=== PATIENT | male | born 1995 | race Asian ===

== ENCOUNTER 2023-03-31 11:24 | Inpatient (IN) | payer MEDICAID ==
[~2023-03-31] VITALS: Ht 175.3 cm; Wt 63.7 kg
[2023-03-31 11:46] LABS: BASOPHILS % (AUTO) 0.3 % (0.0-2.0); EOSINOPHILS % (AUTO) 1.5 % (1.0-6.0); HEMATOCRIT 44.2 % (41-53); HEMOGLOBIN 14.6 g/dL (13.5-17.5); LYMPHOCYTES # (AUTO) 2.1 K/uL (1.0-4.8); LYMPHOCYTES % (AUTO) 21.7 % (22.0-44.0); MEAN CORPUSCULAR HEMOGLOBIN 30.9 pg (26.0-34.0); MEAN CORPUSCULAR HGB CONC 33.1 G/dL (31.0-37.0); MEAN CORPUSCULAR VOLUME 93 fL (80-100); MONOCYTES # (AUTO) 0.6 K/uL (0.1-1.0); MONOCYTES % (AUTO) 6.6 % (2.0-9.0); NEUTROPHILS # (AUTO) 6.6 K/uL (1.8-7.7); NEUTROPHILS % (AUTO) 69.9 % (40.0-70.0); PLATELET COUNT (AUTO) 209 K/uL (150-450); RED BLOOD CELL COUNT(AUTO) 4.73 MIL/uL (4.50-5.90); RED CELL DISTRIBUTION WIDTH 13.2 % (11.5-14.5); WHITE BLOOD COUNT (AUTO) 9.5 K/uL (4.5-11.0)
[2023-03-31 11:58] LABS: ALCOHOL, BLOOD (SERUM) < 3 mg/dL (0-10)
[2023-03-31 12:01] LABS: ANION GAP 10 mmol/L (8-16); CALCIUM, TOTAL 8.6 mg/dL (8.8-10.5); CARBON DIOXIDE 28 mmol/L (22-29); CHLORIDE 101 mmol/L (98-107); CREATININE 0.75 mg/dL (0.60-1.30); GLOMERULAR FILTR. RATE CALC > 60 mL/min (>60); GLUCOSE,RANDOM 106 mg/dL (70-110); POTASSIUM 3.6 mmol/L (3.5-5.1); SODIUM SERUM 139 mmol/L (136-145); UREA NITROGEN, BLOOD 11 mg/dL (7-18)
[2023-03-31 12:05] LABS: ALANINE AMINOTRANSFERASE 57 U/L (12-78); ALBUMIN 3.8 g/dL (3.4-5.0); ALKALINE PHOSPHATASE 60 U/L (46-116); ASPARTATE AMINOTRANSFERASE 26 U/L (15-37); BILIRUBIN,TOTAL 0.5 mg/dL (0.1-1.0); TOTAL PROTEIN, SERUM 7.3 g/dL (6.4-8.2)
[2023-03-31] MEDS ORDERED: LORazepam 2 MG TABLET PO PRN (13:00)
[2023-03-31] MEDS ORDERED: HALOPERIDOL 5 MG TABLET PO PRN (13:00)
[2023-03-31 16:15] LABS: COVID AG,FIA SOURCE NASAL SWAB
[2023-03-31 16:33] LABS: SARS-COV2 (COVID) ANTIGEN,FIA Negative (Negative)
[2023-03-31 17:30] VITALS: BP 110/58; PULSE 71; RESP 18; TEMP 97.5
[2023-03-31 17:48] VITALS: BP 110/58; PULSE 71; RESP 18; TEMP 97.5; O2SAT 100
[2023-03-31] MEDS: ZOLPIDEM TARTRATE 10 MG TABLET PO PRN (21:24)
[2023-03-31 22:31] VITALS: BP 94/60; PULSE 60; RESP 18; TEMP 97.8; O2SAT 100
[2023-04-01 12:08] VITALS: BP 102/62; PULSE 89; RESP 18; TEMP 97.8; O2SAT 96
[2023-04-01] MEDS ORDERED: ACETAMINOPHEN 325 MG TABLET PO PRN (20:30)
[2023-04-01] MEDS ORDERED: OMEPRAZOLE 20 MG CAPSULE PO PRN (20:30)
[2023-04-01] MEDS ORDERED: MAG HYDROX/AL HYDROX/SIMETH ES 30 ML SUSPENSION UDCUP PO PRN (20:30)
[2023-04-01] MEDS ORDERED: IBUPROFEN 600 MG TABLET PO PRN (20:30)
[2023-04-01] MEDS ORDERED: BENZOCAINE/MENTHOL LOZENGE PO PRN (20:30)
[2023-04-01] MEDS ORDERED: MAGNESIUM HYDROXIDE SUSPENSION 30 ML UDCUP PO PRN (20:30)
[2023-04-01] MEDS ORDERED: ONDANSETRON HCL 4 MG TABLET PO PRN (20:30)
[2023-04-01] MEDS ORDERED: LOPERAMIDE HCL 2 MG CAPSULE PO PRN (20:30)
[2023-04-01] MEDS ORDERED: BACITRACIN 28 GM OINTMENT TP PRN (20:30)
[2023-04-01] MEDS ORDERED: DOCUSATE SODIUM 100 MG CAPSULE PO PRN (20:30)
[2023-04-01] MEDS ORDERED: ALBUTEROL SULFATE HFA 90 MCG/PUFF 8 GM INHALER IH PRN (20:30)
[2023-04-01] MEDS ORDERED: PETROLATUM,WHITE 28 GM JELLY TP PRN (20:30)
[2023-04-01] MEDS ORDERED: CloNIDine HCL 0.1 MG TABLET PO PRN (20:30)
[2023-04-01] MEDS: ZOLPIDEM TARTRATE 10 MG TABLET PO PRN (21:08)
[2023-04-01 21:28] VITALS: BP 100/60; PULSE 60; RESP 16; TEMP 98.9; O2SAT 96
[2023-04-02 09:03] VITALS: BP 112/64; PULSE 69; RESP 18; TEMP 98.1; O2SAT 99
[2023-04-02 20:33] VITALS: BP 123/70; PULSE 18; RESP 18; TEMP 97.8; O2SAT 100
[2023-04-03 11:45] VITALS: BP 103/57; PULSE 16; RESP 16; TEMP 98.5; O2SAT 98
[2023-04-03] MEDS: RisperiDONE 1 MG TABLET PO SCH (16:37)
[2023-04-03] MEDS: ZOLPIDEM TARTRATE 10 MG TABLET PO PRN (21:29)
[2023-04-04 08:00] VITALS: BP 95/61; PULSE 64; RESP 18; TEMP 98.1; O2SAT 99
[2023-04-04] MEDS: RisperiDONE 1 MG TABLET PO SCH ×2 (09:21→17:26)
[2023-04-04 20:01] VITALS: BP 105/78; PULSE 72; RESP 18; TEMP 97.8; O2SAT 97
[2023-04-05 09:33] VITALS: BP 100/60; PULSE 69; RESP 19; TEMP 98; O2SAT 98
[2023-04-05] MEDS: RisperiDONE 1 MG TABLET PO SCH ×2 (09:39→16:54)
[2023-04-05 21:30] VITALS: BP 112/89; PULSE 84; RESP 18; TEMP 98.7; O2SAT 97
[2023-04-06] MEDS: RisperiDONE 1 MG TABLET PO SCH ×2 (08:36→16:53)
[2023-04-06 09:47] VITALS: BP 113/64; PULSE 70; RESP 20; TEMP 97.2; O2SAT 100
[2023-04-06] MEDS ORDERED: RISP1TAB98 PO (15:13)
== END 2023-04-06 17:15 | disposition home or self-care (01) | DRG 750 ==
LOC: EMS 11:30 → 3EI 15:42
PROVIDERS: ADMIT Psychiatry & Neurology Psychiatry; ATTEND Psychiatry & Neurology Psychiatry
DX: F25.9 Schizoaffective disorder, unspecified (principal); R45.851 Suicidal ideations; F12.10 Cannabis abuse, uncomplicated; G47.00 Insomnia, unspecified; F41.9 Anxiety disorder, unspecified; Z20.822 Contact with and (suspected) exposure to COVID-19; F10.90 Alcohol use, unspecified, uncomplicated; Y90.9 Presence of alcohol in blood, level not specified; K59.00 Constipation, unspecified; Z72.0 Tobacco use; Z71.6 Tobacco abuse counseling
CPT/HCPCS: 80053; 85025; 99285; G0480

== ENCOUNTER 2023-04-11 08:25 | Inpatient (IN) | payer MEDICAID ==
[~2023-04-11] VITALS: Ht 172.7 cm; Wt 64.6 kg
[~2023-04-11 08:25] MED LIST: RISP1TAB98 PO
[2023-04-11 09:05] LABS: BASOPHILS % (AUTO) 0.3 % (0.0-2.0); EOSINOPHILS % (AUTO) 2.7 % (1.0-6.0); HEMATOCRIT 43.7 % (41-53); HEMOGLOBIN 14.6 g/dL (13.5-17.5); LYMPHOCYTES # (AUTO) 2.3 K/uL (1.0-4.8); LYMPHOCYTES % (AUTO) 26.3 % (22.0-44.0); MEAN CORPUSCULAR HEMOGLOBIN 30.9 pg (26.0-34.0); MEAN CORPUSCULAR HGB CONC 33.4 G/dL (31.0-37.0); MEAN CORPUSCULAR VOLUME 93 fL (80-100); MONOCYTES # (AUTO) 0.7 K/uL (0.1-1.0); MONOCYTES % (AUTO) 8.4 % (2.0-9.0); NEUTROPHILS # (AUTO) 5.5 K/uL (1.8-7.7); NEUTROPHILS % (AUTO) 62.3 % (40.0-70.0); PLATELET COUNT (AUTO) 229 K/uL (150-450); RED BLOOD CELL COUNT(AUTO) 4.72 MIL/uL (4.50-5.90); WHITE BLOOD COUNT (AUTO) 8.8 K/uL (4.5-11.0)
[2023-04-11 09:12] LABS: ANION GAP 11 mmol/L (8-16); CALCIUM, TOTAL 8.7 mg/dL (8.8-10.5); CARBON DIOXIDE 28 mmol/L (22-29); CHLORIDE 102 mmol/L (98-107); CREATININE 0.68 mg/dL (0.60-1.30); GLOMERULAR FILTR. RATE CALC > 60 mL/min (>60); GLUCOSE,RANDOM 92 mg/dL (70-110); POTASSIUM 3.6 mmol/L (3.5-5.1); SODIUM SERUM 141 mmol/L (136-145); UREA NITROGEN, BLOOD 8 mg/dL (7-18)
[2023-04-11 09:18] LABS: ALANINE AMINOTRANSFERASE 14 U/L (12-78); ALBUMIN 4.1 g/dL (3.4-5.0); ALKALINE PHOSPHATASE 65 U/L (46-116); ASPARTATE AMINOTRANSFERASE 17 U/L (15-37); BILIRUBIN,TOTAL 0.2 mg/dL (0.1-1.0); TOTAL PROTEIN, SERUM 7.6 g/dL (6.4-8.2)
[2023-04-11 09:19] LABS: ALCOHOL, BLOOD (SERUM) < 3 mg/dL (0-10)
[2023-04-11 09:50] LABS: COVID AG,FIA SOURCE NASAL SWAB
[2023-04-11 10:32] LABS: SARS-COV2 (COVID) ANTIGEN,FIA Negative (Negative)
[2023-04-11] MEDS ORDERED: HALOPERIDOL 5 MG TABLET PO PRN (11:45)
[2023-04-11] MEDS ORDERED: LORazepam 2 MG TABLET PO PRN (11:45)
[2023-04-11 13:25] LABS: APPEARANCE,URINE CLEAR (CLEAR); BILIRUBIN,URINE NEGATIVE (NEGATIVE); COLOR,URINE COLORLESS (YELLOW); GLUCOSE, URINE (UA) NEGATIVE (NEGATIVE); KETONES,URINE NEGATIVE (NEGATIVE); LEUKOCYTE ESTERASE ,URINE NEGATIVE (NEGATIVE); NITRATE,URINE NEGATIVE (NEGATIVE); OCCULT BLOOD,URINE NEGATIVE (NEGATIVE); PROTEIN,URINE NEGATIVE (NEGATIVE); SPECIFIC GRAVITIY, URINE 1.007 (1.003-1.030); UROBILINOGEN,URINE <=1.0 mg/dL (<=1.0)
[2023-04-11 22:55] VITALS: BP 109/64; PULSE 65; RESP 19; TEMP 97.8; O2SAT 98
[2023-04-11 23:14] VITALS: BP 109/64; PULSE 65; RESP 19; TEMP 97.8
[2023-04-11 23:21] VITALS: BP 109/64; PULSE 65; RESP 19; TEMP 97.8
[2023-04-12] MEDS ORDERED: BACITRACIN 28 GM OINTMENT TP PRN (07:30)
[2023-04-12] MEDS ORDERED: BENZOCAINE/MENTHOL LOZENGE PO PRN (07:30)
[2023-04-12] MEDS ORDERED: ONDANSETRON HCL 4 MG TABLET PO PRN (07:30)
[2023-04-12] MEDS ORDERED: DOCUSATE SODIUM 100 MG CAPSULE PO PRN (07:30)
[2023-04-12] MEDS ORDERED: ALBUTEROL SULFATE HFA 90 MCG/PUFF 8 GM INHALER IH PRN (07:30)
[2023-04-12] MEDS ORDERED: MAGNESIUM HYDROXIDE SUSPENSION 30 ML UDCUP PO PRN (07:30)
[2023-04-12] MEDS ORDERED: ACETAMINOPHEN 325 MG TABLET PO PRN (07:30)
[2023-04-12] MEDS ORDERED: IBUPROFEN 600 MG TABLET PO PRN (07:30)
[2023-04-12] MEDS ORDERED: PETROLATUM,WHITE 28 GM JELLY TP PRN (07:30)
[2023-04-12] MEDS ORDERED: LOPERAMIDE HCL 2 MG CAPSULE PO PRN (07:30)
[2023-04-12] MEDS ORDERED: OMEPRAZOLE 20 MG CAPSULE PO PRN (07:30)
[2023-04-12] MEDS ORDERED: MAG HYDROX/AL HYDROX/SIMETH ES 30 ML SUSPENSION UDCUP PO PRN (07:30)
[2023-04-12] MEDS ORDERED: CloNIDine HCL 0.1 MG TABLET PO PRN (07:30)
[2023-04-12 10:04] VITALS: BP 112/65; PULSE 65; RESP 18; TEMP 97.8
[2023-04-12 13:43] LABS: ALCOHOL, URINE DRUG SCREEN NEGATIVE (NEGATIVE); AMPHET/METH SCREEN,URINE NEGATIVE (NEGATIVE); BARBITURATE SCREEN, URINE NEGATIVE (NEGATIVE); BENZODIAZEPINES SCREEN,URINE NEGATIVE (NEGATIVE); CANNABINOID SCREEN,URINE NEGATIVE (NEGATIVE); COCAINE SCREEN,URINE NEGATIVE (NEGATIVE); METHADONE SCREEN, URINE NEGATIVE (NEGATIVE); OPIATE SCREEN,URINE NEGATIVE (NEGATIVE); PHENCYCLIDINE SCREEN,URINE NEGATIVE (NEGATIVE)
[2023-04-12] MEDS: RisperiDONE 1 MG TABLET PO SCH (17:39)
[2023-04-12] MEDS: DIVALPROEX SODIUM 500 MG DR TABLET PO SCH (17:39)
[2023-04-12] MEDS: LITHIUM CARBONATE 300 MG CAPSULE PO SCH (17:39)
[2023-04-12 20:44] VITALS: BP 113/62; PULSE 68; RESP 18; TEMP 97.8
[2023-04-13] MEDS: LITHIUM CARBONATE 300 MG CAPSULE PO SCH ×2 (10:02→16:17)
[2023-04-13] MEDS: RisperiDONE 1 MG TABLET PO SCH (10:02)
[2023-04-13] MEDS: DIVALPROEX SODIUM 500 MG DR TABLET PO SCH ×2 (10:02→16:17)
[2023-04-13 10:18] VITALS: BP 124/68; PULSE 76; RESP 18; TEMP 97.7
[2023-04-13] MEDS: RisperiDONE 3 MG TABLET PO SCH (16:17)
[2023-04-13 20:51] VITALS: BP 99/71; PULSE 67; RESP 18; TEMP 97.9
[2023-04-14] MEDS: DIVALPROEX SODIUM 500 MG DR TABLET PO SCH ×3 (08:16→17:00)
[2023-04-14] MEDS: LITHIUM CARBONATE 300 MG CAPSULE PO SCH ×3 (08:16→17:00)
[2023-04-14] MEDS: RisperiDONE 3 MG TABLET PO SCH ×3 (08:16→17:00)
[2023-04-14 11:39] VITALS: BP 110/65; PULSE 89; RESP 17; TEMP 97.2
[2023-04-14 21:14] VITALS: BP 130/67; PULSE 72; RESP 18; TEMP 97.4
[2023-04-15 08:01] VITALS: BP 96/71; PULSE 88; RESP 18; TEMP 98.1
[2023-04-15] MEDS: RisperiDONE 3 MG TABLET PO SCH ×2 (09:00→17:14)
[2023-04-15] MEDS: LITHIUM CARBONATE 300 MG CAPSULE PO SCH ×2 (09:00→17:14)
[2023-04-15] MEDS: DIVALPROEX SODIUM 500 MG DR TABLET PO SCH ×2 (09:00→17:14)
[2023-04-15 20:14] VITALS: BP 101/75; PULSE 85; RESP 18; TEMP 98.4
[2023-04-15] MEDS: ZOLPIDEM TARTRATE 10 MG TABLET PO PRN (21:31)
[2023-04-16] MEDS: RisperiDONE 3 MG TABLET PO SCH ×2 (09:00→18:17)
[2023-04-16] MEDS: LITHIUM CARBONATE 300 MG CAPSULE PO SCH ×2 (09:00→18:17)
[2023-04-16] MEDS: DIVALPROEX SODIUM 500 MG DR TABLET PO SCH ×2 (09:00→18:17)
[2023-04-16 09:34] LABS: VALPROIC ACID 34 mcg/mL (50-100)
[2023-04-16 09:45] VITALS: BP 100/68; PULSE 80; RESP 18; TEMP 98.7
[2023-04-16 09:56] LABS: LITHIUM < 0.20 mmol/L (0.60-1.20)
[2023-04-16 21:52] VITALS: BP 91/54; PULSE 82; RESP 18; TEMP 99.1
[2023-04-17 09:00] VITALS: BP 118/83; PULSE 81; RESP 18; TEMP 97.5
[2023-04-17] MEDS: RisperiDONE 3 MG TABLET PO SCH ×2 (09:13→17:00)
[2023-04-17] MEDS: DIVALPROEX SODIUM 500 MG DR TABLET PO SCH ×2 (09:13→17:00)
[2023-04-17] MEDS: LITHIUM CARBONATE 300 MG CAPSULE PO SCH ×2 (09:13→17:00)
[2023-04-17] MEDS: ZOLPIDEM TARTRATE 10 MG TABLET PO PRN (21:39)
[2023-04-17 22:25] VITALS: BP 90/60; PULSE 61; RESP 18; TEMP 97.8
[2023-04-18] MEDS: DIVALPROEX SODIUM 500 MG DR TABLET PO SCH ×2 (09:31→16:12)
[2023-04-18] MEDS: LITHIUM CARBONATE 300 MG CAPSULE PO SCH ×2 (09:31→16:12)
[2023-04-18] MEDS: RisperiDONE 3 MG TABLET PO SCH ×2 (09:31→16:12)
[2023-04-18 09:47] VITALS: BP 96/68; PULSE 82; RESP 18; TEMP 97.6
[2023-04-18 21:24] VITALS: BP 92/60; PULSE 60; RESP 18; TEMP 97.7
[2023-04-19] MEDS: ZOLPIDEM TARTRATE 10 MG TABLET PO PRN (02:35)
[2023-04-19 08:00] VITALS: BP 96/61; PULSE 85; RESP 17; TEMP 97.9
[2023-04-19] MEDS: LITHIUM CARBONATE 300 MG CAPSULE PO SCH ×2 (09:19→18:24)
[2023-04-19] MEDS: DIVALPROEX SODIUM 500 MG DR TABLET PO SCH ×2 (09:20→18:24)
[2023-04-19] MEDS: RisperiDONE 3 MG TABLET PO SCH ×2 (09:20→18:24)
[2023-04-19 21:19] VITALS: BP 94/60; PULSE 64; RESP 17; TEMP 97
[2023-04-20] MEDS: RisperiDONE 3 MG TABLET PO SCH ×2 (08:08→16:39)
[2023-04-20] MEDS: DIVALPROEX SODIUM 500 MG DR TABLET PO SCH ×2 (08:08→16:39)
[2023-04-20] MEDS: LITHIUM CARBONATE 300 MG CAPSULE PO SCH ×2 (08:08→16:39)
[2023-04-20 08:40] VITALS: BP 104/63; PULSE 76; RESP 18; TEMP 97.7
[2023-04-20 21:19] VITALS: BP 98/62; PULSE 86; RESP 18; TEMP 97.8
[2023-04-20] MEDS: ZOLPIDEM TARTRATE 10 MG TABLET PO PRN (21:46)
[2023-04-21] MEDS: RisperiDONE 3 MG TABLET PO SCH ×3 (08:43→16:14)
[2023-04-21] MEDS: DIVALPROEX SODIUM 500 MG DR TABLET PO SCH ×3 (08:43→16:14)
[2023-04-21] MEDS: LITHIUM CARBONATE 300 MG CAPSULE PO SCH ×2 (08:43→16:14)
[2023-04-21 09:58] VITALS: BP 97/67; PULSE 70; RESP 17
[2023-04-21] MEDS ORDERED: DIVA-112 PO (21:01)
[2023-04-21] MEDS ORDERED: RISP3TAB63 PO (21:01)
[2023-04-21] MEDS ORDERED: LITH300C3 PO (21:01)
[2023-04-21] MEDS: ZOLPIDEM TARTRATE 10 MG TABLET PO PRN (21:36)
[2023-04-21 21:53] VITALS: BP 113/65; PULSE 90; RESP 18; TEMP 95
[2023-04-22] MEDS: DIVALPROEX SODIUM 500 MG DR TABLET PO SCH (08:47)
[2023-04-22] MEDS: LITHIUM CARBONATE 300 MG CAPSULE PO SCH (08:47)
[2023-04-22] MEDS: RisperiDONE 3 MG TABLET PO SCH (08:47)
[2023-04-22 09:10] VITALS: BP 103/68; PULSE 62; RESP 19; TEMP 97.8
== END 2023-04-22 10:25 | disposition home or self-care (01) | DRG 750 ==
LOC: EMS 08:25 → 3EI 17:30
PROVIDERS: ADMIT Psychiatry & Neurology Psychiatry; ATTEND Psychiatry & Neurology Psychiatry
DX: F25.9 Schizoaffective disorder, unspecified (principal); R45.851 Suicidal ideations; F41.9 Anxiety disorder, unspecified; G47.00 Insomnia, unspecified; K59.00 Constipation, unspecified; F10.90 Alcohol use, unspecified, uncomplicated; F17.210 Nicotine dependence, cigarettes, uncomplicated; Z20.822 Contact with and (suspected) exposure to COVID-19
CPT/HCPCS: 80053; 80164; 80178; 80307; 81003; 85025; 99285; G0480

== ENCOUNTER 2023-05-19 08:34 | Inpatient (IN) | payer MEDICAID ==
[~2023-05-19] VITALS: Ht 175.3 cm; Wt 68.7 kg
[~2023-05-19 08:34] MED LIST changes: +DIVA-112 PO; +LITH300C3 PO; -RISP1TAB98 PO; +RISP3TAB63 PO
[2023-05-19] MEDS ORDERED: HALOPERIDOL 5 MG TABLET PO ONE (09:45)
[2023-05-19 09:57] LABS: BASOPHILS % (AUTO) 0.2 % (0.0-2.0); EOSINOPHILS % (AUTO) 2.1 % (1.0-6.0); HEMATOCRIT 45.1 % (41-53); HEMOGLOBIN 15.3 g/dL (13.5-17.5); LYMPHOCYTES % (AUTO) 24.7 % (22.0-44.0); MEAN CORPUSCULAR HEMOGLOBIN 31.5 pg (26.0-34.0); MEAN CORPUSCULAR VOLUME 93 fL (80-100); MONOCYTES # (AUTO) 0.6 K/uL (0.1-1.0); NEUTROPHILS # (AUTO) 5.2 K/uL (1.8-7.7); PLATELET COUNT (AUTO) 223 K/uL (150-450); RED BLOOD CELL COUNT(AUTO) 4.87 MIL/uL (4.50-5.90)
[2023-05-19 10:04] LABS: ANION GAP 8 mmol/L (8-16); CALCIUM, TOTAL 9.6 mg/dL (8.8-10.5); CARBON DIOXIDE 28 mmol/L (22-29); CHLORIDE 100 mmol/L (98-107); CREATININE 0.77 mg/dL (0.60-1.30); GLOMERULAR FILTR. RATE CALC > 60 mL/min (>60); GLUCOSE,RANDOM 99 mg/dL (70-110); POTASSIUM 3.9 mmol/L (3.5-5.1); SODIUM SERUM 136 mmol/L (136-145); UREA NITROGEN, BLOOD 10 mg/dL (7-18)
[2023-05-19 10:08] LABS: COVID AG,FIA SOURCE NASAL SWAB
[2023-05-19 10:10] LABS: ALANINE AMINOTRANSFERASE 56 U/L (12-78); ALBUMIN 4.4 g/dL (3.4-5.0); ALKALINE PHOSPHATASE 69 U/L (46-116); ASPARTATE AMINOTRANSFERASE 29 U/L (15-37); BILIRUBIN,TOTAL 0.3 mg/dL (0.1-1.0); TOTAL PROTEIN, SERUM 8.4 g/dL (6.4-8.2)
[2023-05-19 10:11] LABS: ALCOHOL, URINE DRUG SCREEN NEGATIVE (NEGATIVE); AMPHET/METH SCREEN,URINE NEGATIVE (NEGATIVE); BARBITURATE SCREEN, URINE NEGATIVE (NEGATIVE); BENZODIAZEPINES SCREEN,URINE NEGATIVE (NEGATIVE); CANNABINOID SCREEN,URINE NEGATIVE (NEGATIVE); COCAINE SCREEN,URINE NEGATIVE (NEGATIVE); METHADONE SCREEN, URINE NEGATIVE (NEGATIVE); OPIATE SCREEN,URINE NEGATIVE (NEGATIVE); PHENCYCLIDINE SCREEN,URINE NEGATIVE (NEGATIVE)
[2023-05-19 10:26] LABS: ALCOHOL, BLOOD (SERUM) < 3 mg/dL (0-10); LITHIUM < 0.20 mmol/L (0.60-1.20)
[2023-05-19 10:27] LABS: VALPROIC ACID < 3 mcg/mL (50-100)
[2023-05-19 10:32] LABS: SARS-COV2 (COVID) ANTIGEN,FIA Negative (Negative)
[2023-05-19 16:28] LABS: APPEARANCE,URINE CLEAR (CLEAR); BILIRUBIN,URINE NEGATIVE (NEGATIVE); COLOR,URINE LIGHT YELLOW (YELLOW); GLUCOSE, URINE (UA) NEGATIVE (NEGATIVE); KETONES,URINE NEGATIVE (NEGATIVE); LEUKOCYTE ESTERASE ,URINE NEGATIVE (NEGATIVE); NITRATE,URINE NEGATIVE (NEGATIVE); OCCULT BLOOD,URINE NEGATIVE (NEGATIVE); PH,URINE 6.5 (5.0-8.0); PROTEIN,URINE NEGATIVE (NEGATIVE); SPECIFIC GRAVITIY, URINE 1.018 (1.003-1.030); UROBILINOGEN,URINE <=1.0 mg/dL (<=1.0)
[2023-05-19] MEDS: ZOLPIDEM TARTRATE 10 MG TABLET PO PRN (20:44)
[2023-05-19] MEDS ORDERED: INFLUENZA VIRUS VACCINE QVS 2023-24 (6MO+)/PF 60 MCG/0.5 ML SYRINGE IM. ONE (22:00)
[2023-05-19 22:10] VITALS: BP 98/71; PULSE 65; RESP 18; TEMP 97.6
[2023-05-20] MEDS ORDERED: IBUPROFEN 600 MG TABLET PO PRN (07:30)
[2023-05-20] MEDS ORDERED: ACETAMINOPHEN 325 MG TABLET PO PRN (07:30)
[2023-05-20] MEDS ORDERED: CloNIDine HCL 0.1 MG TABLET PO PRN (07:30)
[2023-05-20] MEDS ORDERED: DOCUSATE SODIUM 100 MG CAPSULE PO PRN (07:30)
[2023-05-20] MEDS ORDERED: LOPERAMIDE HCL 2 MG CAPSULE PO PRN (07:30)
[2023-05-20] MEDS ORDERED: MAGNESIUM HYDROXIDE SUSPENSION 30 ML UDCUP PO PRN (07:30)
[2023-05-20] MEDS ORDERED: BENZOCAINE/MENTHOL LOZENGE PO PRN (07:30)
[2023-05-20] MEDS ORDERED: OMEPRAZOLE 20 MG CAPSULE PO PRN (07:30)
[2023-05-20] MEDS ORDERED: ONDANSETRON HCL 4 MG TABLET PO PRN (07:30)
[2023-05-20] MEDS ORDERED: ALBUTEROL SULFATE HFA 90 MCG/PUFF 8 GM INHALER IH PRN (07:30)
[2023-05-20] MEDS ORDERED: BACITRACIN 28 GM OINTMENT TP PRN (07:30)
[2023-05-20] MEDS ORDERED: PETROLATUM,WHITE 28 GM JELLY TP PRN (07:30)
[2023-05-20] MEDS ORDERED: MAG HYDROX/ALUMINUM HYD/SIMETH ES 30 ML SUSPENSION UDCUP PO PRN (07:30)
[2023-05-20 10:27] VITALS: BP 102/68; PULSE 86; RESP 16; TEMP 98.3; O2SAT 99
[2023-05-20 16:20] VITALS: BP 128/89; PULSE 70; RESP 19; TEMP 98.1
[2023-05-20 20:35] VITALS: BP 128/89; PULSE 70; RESP 19; TEMP 98.1; O2SAT 98
[2023-05-21 08:32] VITALS: BP 112/62; PULSE 67; RESP 17; TEMP 97.6; O2SAT 98
[2023-05-21] MEDS: HALOPERIDOL 5 MG TABLET PO PRN (18:43)
[2023-05-21] MEDS: OLANZapine 5 MG RAPDIS TABLET PO SCH (20:44)
[2023-05-21 22:27] VITALS: BP 101/60; PULSE 73; RESP 17; TEMP 97.4; O2SAT 97
[2023-05-22 08:47] VITALS: BP 118/67; PULSE 64; RESP 18; TEMP 97.6; O2SAT 100
[2023-05-22 20:40] VITALS: BP 103/64; PULSE 60; RESP 18; TEMP 97.7; O2SAT 98
[2023-05-22] MEDS: OLANZapine 5 MG RAPDIS TABLET PO SCH (20:46)
[2023-05-23 08:30] VITALS: BP 118/61; PULSE 60; RESP 18; TEMP 97.6; O2SAT 98
[2023-05-23] MEDS: OLANZapine 5 MG RAPDIS TABLET PO SCH (20:42)
[2023-05-23 22:25] VITALS: BP 107/69; PULSE 71; RESP 18; TEMP 97.8; O2SAT 98
[2023-05-24 10:00] VITALS: BP 103/65; PULSE 85; RESP 16; TEMP 97.9; O2SAT 99
[2023-05-24 20:35] VITALS: BP 111/72; PULSE 67; RESP 18; TEMP 97.8; O2SAT 97
[2023-05-24] MEDS: OLANZapine 5 MG RAPDIS TABLET PO SCH (21:37)
[2023-05-25 08:29] VITALS: BP 101/60; PULSE 64; RESP 18; TEMP 97.6; O2SAT 98
[2023-05-25] MEDS: OLANZapine 5 MG RAPDIS TABLET PO SCH (20:51)
[2023-05-25 22:49] VITALS: BP 95/66; PULSE 60; RESP 18; TEMP 98.6; O2SAT 98
[2023-05-26 09:00] VITALS: BP 102/57; PULSE 63; RESP 17; TEMP 98.8; O2SAT 98
[2023-05-26] MEDS: OLANZapine 5 MG RAPDIS TABLET PO SCH (20:26)
[2023-05-26 21:32] VITALS: BP 101/78; PULSE 65; RESP 18; TEMP 98.1; O2SAT 98
[2023-05-27 08:49] VITALS: BP 104/68; PULSE 63; RESP 17; TEMP 97.6; O2SAT 96
[2023-05-27 18:44] VITALS: RESP 18; O2SAT 96
[2023-05-27 19:44] VITALS: RESP 17; O2SAT 96
[2023-05-27] MEDS: OLANZapine 5 MG RAPDIS TABLET PO SCH (21:03)
[2023-05-27 21:08] VITALS: BP 104/54; PULSE 74; RESP 18; TEMP 97.9; O2SAT 98
[2023-05-28 01:10] VITALS: BP 123/67; PULSE 62; RESP 17; TEMP 98.1; O2SAT 98
[2023-05-28] MEDS: ZOLPIDEM TARTRATE 10 MG TABLET PO PRN ×2 (01:20→21:42)
[2023-05-28 08:45] VITALS: BP 108/63; PULSE 60; RESP 18; TEMP 97.7; O2SAT 97
[2023-05-28 21:02] VITALS: BP 117/75; PULSE 67; RESP 18; TEMP 98.1; O2SAT 98
[2023-05-28] MEDS: OLANZapine 5 MG RAPDIS TABLET PO SCH (21:41)
[2023-05-28] MEDS: HALOPERIDOL 5 MG TABLET PO PRN (21:42)
[2023-05-28] MEDS: LORazepam 2 MG TABLET PO PRN (21:42)
[2023-05-29 08:37] VITALS: BP 106/71; PULSE 70; RESP 18; TEMP 97.6; O2SAT 97
[2023-05-29] MEDS: OLANZapine 5 MG RAPDIS TABLET PO SCH (20:51)
[2023-05-29 20:52] VITALS: BP 100/60; PULSE 78; RESP 17; TEMP 98; O2SAT 97
[2023-05-30 08:28] VITALS: BP 100/67; PULSE 73; RESP 17; TEMP 98; O2SAT 99
[2023-05-30 20:50] VITALS: BP 100/60; PULSE 68; RESP 18; TEMP 98; O2SAT 98
[2023-05-30] MEDS: OLANZapine 5 MG RAPDIS TABLET PO SCH (21:31)
[2023-05-30] MEDS: ZOLPIDEM TARTRATE 10 MG TABLET PO PRN (21:31)
[2023-05-30] MEDS: LORazepam 2 MG TABLET PO PRN (21:32)
[2023-05-31 08:57] VITALS: BP 105/61; PULSE 71; RESP 17; TEMP 98.4
[2023-05-31 20:27] VITALS: BP 104/73; PULSE 73; RESP 18; TEMP 97.6; O2SAT 98
[2023-05-31] MEDS: OLANZapine 5 MG RAPDIS TABLET PO SCH (20:45)
[2023-06-01 08:49] VITALS: BP 104/58; PULSE 88; RESP 18; TEMP 98; O2SAT 99
[2023-06-01 20:18] VITALS: BP 127/75; PULSE 103; RESP 18; TEMP 98.5; O2SAT 98
[2023-06-01] MEDS: OLANZapine 5 MG RAPDIS TABLET PO SCH (20:24)
[2023-06-02 08:52] VITALS: BP 108/61; PULSE 82; RESP 19; TEMP 97.7; O2SAT 98
== END 2023-06-02 14:40 | disposition home or self-care (01) | DRG 750 ==
LOC: EMS 08:34 → B2S 17:00 → UNDOADMIN 19:48
PROVIDERS: ADMIT Psychiatry & Neurology Psychiatry; ATTEND Psychiatry & Neurology Psychiatry
DX: F25.9 Schizoaffective disorder, unspecified (principal); R45.851 Suicidal ideations; F10.90 Alcohol use, unspecified, uncomplicated; F41.9 Anxiety disorder, unspecified; Z20.822 Contact with and (suspected) exposure to COVID-19; Z59.00 Homelessness unspecified; G47.00 Insomnia, unspecified; K59.00 Constipation, unspecified; F17.200 Nicotine dependence, unspecified, uncomplicated; Z91.199 Patient's noncompliance with other medical treatment and regimen due to unspecified reason
CPT/HCPCS: 80053; 80164; 80178; 80307; 81003; 85025; G0480

== ENCOUNTER 2024-04-19 08:16 | Inpatient (IN) | payer MEDICAID ==
[~2024-04-19] VITALS: Ht 175.3 cm; Wt 66.7 kg
[2024-04-19 08:15] VITALS: BP 112/74; PULSE 62; RESP 18; TEMP 96.8; O2SAT 100
[2024-04-19] MEDS ORDERED: LORazepam 2 MG TABLET PO PRN (10:00)
[2024-04-19] MEDS ORDERED: ZOLPIDEM TARTRATE 10 MG TABLET PO PRN (10:00)
[2024-04-19] MEDS ORDERED: HALOPERIDOL 5 MG TABLET PO PRN (10:00)
[2024-04-19] MEDS ORDERED: PETROLATUM,WHITE 28 GM JELLY TP PRN (10:30)
[2024-04-19] MEDS ORDERED: LOPERAMIDE HCL 2 MG CAPSULE PO PRN (10:30)
[2024-04-19] MEDS ORDERED: ACETAMINOPHEN 325 MG TABLET PO PRN (10:30)
[2024-04-19] MEDS ORDERED: MAGNESIUM HYDROXIDE SUSPENSION 30 ML UDCUP PO PRN (10:30)
[2024-04-19] MEDS ORDERED: MAG HYDROX/ALUMINUM HYD/SIMETH ES 30 ML SUSPENSION UDCUP PO PRN (10:30)
[2024-04-19] MEDS ORDERED: OMEPRAZOLE 20 MG CAPSULE PO PRN (10:30)
[2024-04-19] MEDS ORDERED: ALBUTEROL SULFATE HFA 90 MCG/PUFF 8 GM INHALER IH PRN (10:30)
[2024-04-19] MEDS ORDERED: ONDANSETRON 4 MG TABLET PO PRN (10:30)
[2024-04-19] MEDS ORDERED: BACITRACIN 28 GM OINTMENT TP PRN (10:30)
[2024-04-19] MEDS ORDERED: DOCUSATE SODIUM 100 MG CAPSULE PO PRN (10:30)
[2024-04-19] MEDS ORDERED: CloNIDine HCL 0.1 MG TABLET PO PRN (10:30)
[2024-04-19 11:00] LABS: GLUCOMETER DEV NAME(LOC) POC.BV; POC SARS-COV2 AG, FIA NEGATIVE (NEGATIVE)
[2024-04-19 11:56] VITALS: BP 132/82; PULSE 88; RESP 16; TEMP 97.7; O2SAT 99
[2024-04-19 18:23] VITALS: RESP 17; O2SAT 99
[2024-04-19] MEDS: IBUPROFEN 600 MG TABLET PO PRN (18:23)
[2024-04-19 19:23] VITALS: RESP 16; O2SAT 99
[2024-04-19 20:01] VITALS: BP 116/78; PULSE 79; RESP 16; TEMP 97.6; O2SAT 99
[2024-04-19] MEDS: OLANZapine 10 MG TABLET PO SCH (20:25)
[2024-04-20 08:44] LABS: BASOPHILS % (AUTO) 0.3 % (0.0-2.0); EOSINOPHILS % (AUTO) 3.7 % (1.0-6.0); HEMATOCRIT 44.9 % (41-53); HEMOGLOBIN 14.8 g/dL (13.5-17.5); LYMPHOCYTES # (AUTO) 2.5 K/uL (1.0-4.8); LYMPHOCYTES % (AUTO) 41.9 % (22.0-44.0); MEAN CORPUSCULAR HEMOGLOBIN 30.1 pg (26.0-34.0); MEAN CORPUSCULAR HGB CONC 32.9 G/dL (31.0-37.0); MEAN CORPUSCULAR VOLUME 92 fL (80-100); MONOCYTES # (AUTO) 0.9 K/uL (0.1-1.0); MONOCYTES % (AUTO) 14.8 % (2.0-9.0); NEUTROPHILS # (AUTO) 2.4 K/uL (1.8-7.7); NEUTROPHILS % (AUTO) 39.3 % (40.0-70.0); PLATELET COUNT (AUTO) 200 K/uL (150-450); RED CELL DISTRIBUTION WIDTH 13.3 % (11.5-14.5)
[2024-04-20 08:48] VITALS: BP_SYST 125; BP_SYST 97; BP_DIAS 65; BP_DIAS 81; PULSE 117; PULSE 60; RESP 16; TEMP 97.3; TEMP 97.9; O2SAT 96; O2SAT 98
[2024-04-20 08:58] LABS: HEMOGLOBIN A1C 5.3 % (3.8-5.6)
[2024-04-20 09:20] LABS: ALANINE AMINOTRANSFERASE 35 U/L (12-78); ALBUMIN 3.5 g/dL (3.4-5.0); ALKALINE PHOSPHATASE 58 U/L (46-116); ANION GAP 7 mmol/L (8-16); ASPARTATE AMINOTRANSFERASE 21 U/L (15-37); BILIRUBIN,TOTAL 0.7 mg/dL (0.1-1.0); CALCIUM, TOTAL 8.4 mg/dL (8.8-10.5); CARBON DIOXIDE 29 mmol/L (22-29); CHLORIDE 104 mmol/L (98-107); CHOL/HDL RATIO 3.9 (4.2-7.3); CHOLESTEROL 164 mg/dL (131-200); GLOMERULAR FILTR. RATE CALC > 60 mL/min (>60); GLUCOSE,RANDOM 78 mg/dL (70-110); HDL CHOLESTEROL 42 mg/dL (40-60); LDL CHOL (CALC.) 105 mg/dL (0-130); POTASSIUM 3.4 mmol/L (3.5-5.1); SODIUM SERUM 140 mmol/L (136-145); THYROID STIMULATING HORMONE 1.36 uIU/mL (0.36-3.74); TOTAL PROTEIN, SERUM 6.6 g/dL (6.4-8.2); TRIGLYCERIDES 86 mg/dL (15-150); UREA NITROGEN, BLOOD 10 mg/dL (7-18)
[2024-04-20 21:20] VITALS: BP 116/71; PULSE 64; RESP 18; TEMP 97; O2SAT 98
[2024-04-21 08:07] VITALS: BP 105/62; PULSE 67; RESP 17; TEMP 97.9; O2SAT 98
[2024-04-21 21:29] VITALS: BP 107/60; PULSE 60; RESP 17; TEMP 97.8; O2SAT 98
[2024-04-22 08:01] VITALS: BP 120/65; PULSE 73; RESP 17; TEMP 98; O2SAT 100
[2024-04-22] MEDS: NICOTINE 21 MG/24 HOUR PATCH TD SCH (10:51)
[2024-04-22 20:07] VITALS: BP 117/72; PULSE 69; RESP 16; TEMP 96.3; O2SAT 98
[2024-04-22] MEDS: OLANZapine 7.5 MG TABLET PO SCH (20:39)
[2024-04-23 08:05] VITALS: BP 142/96; PULSE 82; RESP 17; TEMP 98.1; O2SAT 94
[2024-04-23 20:36] VITALS: BP 110/65; PULSE 78; RESP 18; TEMP 97.1; O2SAT 100
[2024-04-24 08:09] VITALS: BP 108/74; PULSE 71; RESP 17; TEMP 98.2; O2SAT 96
[2024-04-24] MEDS: BENZOCAINE/MENTHOL LOZENGE PO PRN (19:31)
[2024-04-24 20:00] VITALS: BP 112/66; PULSE 84; RESP 18; TEMP 97.5; O2SAT 97
[2024-04-25 08:24] VITALS: BP 114/74; PULSE 61; RESP 16; TEMP 97.7; O2SAT 99
[2024-04-25] MEDS ORDERED: OLAN7.5T22 PO (16:30)
== END 2024-04-25 18:10 | disposition home or self-care (01) | DRG 750 ==
LOC: B2S 09:55 → UNDOADMIN 09:55 → B2S 09:58
PROVIDERS: ADMIT Psychiatry & Neurology Psychiatry; ATTEND Psychiatry & Neurology Psychiatry
DX: F20.9 Schizophrenia, unspecified (principal); F10.90 Alcohol use, unspecified, uncomplicated; F41.9 Anxiety disorder, unspecified; G47.00 Insomnia, unspecified; Z20.822 Contact with and (suspected) exposure to COVID-19; K59.00 Constipation, unspecified; Z72.0 Tobacco use; Z59.00 Homelessness unspecified
CPT/HCPCS: 80053; 80061; 83036; 84132; 84439; 84443; 85025